=== PATIENT | female | born 1955 | race Caucasian/White ===

== ENCOUNTER → 2017-02-15 | Outpatient (CLI) | payer OTHER ==
--- NOTE | 2017-02-15 09:39 | KCIC ---
DATE: 02/15/2017 EXAM: DIGITAL DIAGNOSTIC LT HISTORY: History of right breast carcinoma status post mastectomy in 2012. COMPARISON: Multiple left breast mammograms including 12/22/2015, 11/20/2014, 11/19/2013 This study was interpreted with the benefit of Computerized Aided Detection (CAD). The breast parenchyma shows scattered fibroglandular densities. Breast parenchyma level B. FINDINGS: Left breast digital 2-D CC and MLO views were obtained. No suspicious mass, calcification or architectural distortion. No significant change from prior examination IMPRESSION: No mammographic evidence to suggest malignancy. Recommend routine screening left breast mammogram in 12 months. BI-RADS CATEGORY: 1 NEGATIVE RECOMMENDED FOLLOW-UP: 12M 12 MONTH FOLLOW-UP PQRS compliance statement: Patient information was entered into a reminder system with a target due date February 2018 for the next mammogram. Mammography is a sensitive method for finding small breast cancers, but it does not detect them all and is not a substitute for careful clinical examination. A negative mammogram does not negate a clinically suspicious finding and should not result in delay in biopsying a clinically suspicious abnormality. "Our facility is accredited by the [employer] Mammography [employer]."
== END | disposition home or self-care (01) ==
LOC: KCIC MAMMO 09:02
PROVIDERS: ATTEND Obstetrics & Gynecology
DX: Z12.31 Encounter for screening mammogram for malignant neoplasm of breast (principal)
CPT/HCPCS: G0206; 77065

== ENCOUNTER → 2018-02-16 | Outpatient (CLI) | payer OTHER ==
--- NOTE | 2018-02-16 17:45 | KCIC ---
Diagnostic digital mammograms left breast: Reason for examination: History of right breast cancer with mastectomy. No left breast complaints. Comparison is made to previous studies dated 02/15/2017 and 12/22/2015. Interpretation was made with the benefit of CAD. The skin and nipple show no abnormalities. No abnormal axillary lymph nodes are seen. The breast parenchyma shows scattered fibroglandular density. (Breast density: Category B.) There are no dominant masses, suspicious calcifications or architectural distortions. A few benign calcifications are present. Impression: No evidence of malignancy. Recommend routine screening. BI-RADS category 2: Benign "Our facility is accredited by the [employer] Mammography [employer]." This patient's information has been entered into a reminder system for the patient to be notified with the results of her examination and a target date for the next mammogram. Electronically signed by: Shandra Kelly MD (02/16/2018 5:42 PM) [id number]
== END | disposition home or self-care (01) ==
LOC: KCIC MAMMO 12:42
PROVIDERS: ATTEND Obstetrics & Gynecology
DX: Z08 Encounter for follow-up examination after completed treatment for malignant neoplasm (principal); Z85.3 Personal history of malignant neoplasm of breast; Z90.11 Acquired absence of right breast and nipple
CPT/HCPCS: 77065

== ENCOUNTER → 2019-02-22 | Outpatient (CLI) | payer MEDICARE, OTHER ==
--- NOTE | 2019-02-22 17:28 | KCIC ---
Left breast diagnostic digital mammograms with 3-D tomosynthesis: Reason for examination: History of right breast cancer with mastectomy and 2013. Routine screening of the left breast. Comparison is made to previous studies dated 02/16/2018 and 02/15/2017. Left breast mammograms in CC and oblique projections were obtained with 2-D imaging and 3-D tomosynthesis imaging on a Siemens Inspiration unit and reviewed on the workstation. Interpretation was made with the benefit of CAD. The skin and nipple show no abnormalities. No abnormal axillary lymph nodes are seen. The breast parenchyma shows scattered fatty and fibroglandular density. (Breast density: Category B.) There are no dominant masses, suspicious calcifications or architectural distortion. Impression: No evidence of malignancy. Recommend routine screening. BI-RAD Category 1: Negative. "Our facility is accredited by the [employer] Mammography [employer]." This patient's information has been entered into a reminder system for the patient to be notified with the results of her examination and a target date for the next mammogram. Electronically signed by: Shandra Kelly MD (02/22/2019 5:25 PM) [id number]
== END | disposition home or self-care (01) ==
LOC: KCIC MAMMO 13:32
PROVIDERS: ATTEND Obstetrics & Gynecology
DX: R92.8 Other abnormal and inconclusive findings on diagnostic imaging of breast (principal); Z90.11 Acquired absence of right breast and nipple; Z85.3 Personal history of malignant neoplasm of breast
CPT/HCPCS: 77065; G0279; 77061